=== PATIENT | female | born 1935 | race Hispanic/Latino ===

== ENCOUNTER 2017-09-12 16:16 | Observation (INO) | payer MEDICARE ==
[~2017-09-12] VITALS: Ht 147.3 cm; Wt 49.7 kg
[~2017-09-12 16:16] MED LIST: LORA-705 PO; METF10004 PO; SERT50TA12 PO; SIMV20TA6 PO
[2017-09-12 17:01] LABS: BASOPHILS % (AUTO) 0.7 % (0.0-5.0); HEMATOCRIT 33.1 % (36-48); LYMPHOCYTES % (AUTO) 18.3 % (21.0-51.0); MEAN CORPUSCULAR HEMOGLOBIN 27.7 pg (27.0-33.0); MEAN CORPUSCULAR VOLUME 81.6 fL (79-99); MONOCYTES % (AUTO) 6.7 % (3.0-13.0); NEUTROPHILS % (AUTO) 72.3 % (40.0-77.0); PLATELET COUNT (AUTO) 320 K/uL (130-400); RED BLOOD CELL COUNT(AUTO) 4.06 MIL/uL (4.00-5.50); RED CELL DISTRIBUTION WIDTH 15.7 % (11.0-15.5); WHITE BLOOD COUNT (AUTO) 11.2 K/uL (4.8-10.8)
[2017-09-12] MEDS ORDERED: ONDANSETRON HCL 4 MG/2 ML VIAL ONE (17:07)
[2017-09-12] MEDS ORDERED: ASPIRIN 325 MG TABLET ONE (17:07)
[2017-09-12] MEDS ORDERED: MORPHINE SULFATE 4 MG/1ML SYG ONE (17:08)
[2017-09-12 17:11] LABS: POTASSIUM 3.9 mmol/L (3.5-5.1)
[2017-09-12 17:13] LABS: INR 0.93 (0.85-1.15); PARTIAL THROMBOPLASTIN TIME 26.7 SEC (26.3-35.5); PROTHROMBIN TIME 9.8 SEC (9.6-11.6)
[2017-09-12 17:22] LABS: ALBUMIN 3.5 g/dL (3.5-5.0); BILIRUBIN,TOTAL 0.3 mg/dL (0.2-1.0); TOTAL PROTEIN, SERUM 8.1 g/dL (6.0-8.3)
[2017-09-12 17:28] LABS: B-TYPE NATRIURETIC PEPTIDE 59 pg/mL (0-100)
[2017-09-12] MEDS ORDERED: NITROGLYCERIN 0.4 MG SL TAB SL ONE (19:08)
[2017-09-12] MEDS ORDERED: HYDRALAZINE HCL 20 MG/ML VIAL ONE (19:09)
[2017-09-12] MEDS ORDERED: NITROGLYCERIN 1GM/1 INCH PACKET TD ONE (19:15)
[2017-09-12] MEDS ORDERED: IOPAMIDOL-370 100 ML VIAL IV ONE (19:45)
[2017-09-12] MEDS ORDERED: METOPROLOL TARTRATE 25 MG TAB ONE (19:57)
[2017-09-12] MEDS ORDERED: FAMOTIDINE 20MG TAB 20 MG TAB ONE (19:57)
[2017-09-12 22:04] VITALS: BP 158/64
[2017-09-12 23:31] VITALS: BP 134/67
[2017-09-12 23:49] LABS: CREATINE KINASE MB 0.5 ng/mL (0.5-3.6); CREATINE KINASE, TOTAL 31 U/L (21-232); MYOGLOBIN 59 ng/mL (10-92); TROPONIN I < 0.04 ng/mL (0.00-0.06)
[2017-09-13] MEDS ORDERED: MORPHINE SULFATE 2 MG/ML 1ML SYG IVP PRN (00:15)
[2017-09-13] MEDS ORDERED: TRAMADOL HCL 50 MG TABLET PO PRN (00:15)
[2017-09-13 03:57] VITALS: BP 139/66
[2017-09-13 05:57] LABS: CREATINE KINASE MB < 0.5 ng/mL (0.5-3.6); CREATINE KINASE, TOTAL 25 U/L (21-232); MYOGLOBIN 39 ng/mL (10-92); TROPONIN I < 0.04 ng/mL (0.00-0.06)
[2017-09-13] MEDS ORDERED: NITROGLYCERIN 1GM/1 INCH PACKET TD SCH (06:00)
[2017-09-13 07:25] VITALS: BP 131/69
[2017-09-13] MEDS ORDERED: FAMOTIDINE 20MG TAB 20 MG TAB PO SCH (09:00)
[2017-09-13] MEDS ORDERED: ASPIRIN 81 MG EC TAB PO SCH (09:00)
[2017-09-13] MEDS ORDERED: METOPROLOL TARTRATE 25 MG TAB PO SCH (09:00)
[2017-09-13 11:50] VITALS: BP 142/66
== END 2017-09-13 15:05 | disposition home or self-care (01) ==
LOC: EDH 16:16 → EDHIP 18:46 → 2DH 21:36
PROVIDERS: ADMIT Internal Medicine; ATTEND Internal Medicine
DX: R07.89 Other chest pain (principal); E11.9 Type 2 diabetes mellitus without complications; I10 Essential (primary) hypertension; E78.5 Hyperlipidemia, unspecified; Z82.49 Family history of ischemic heart disease and other diseases of the circulatory system; Z87.891 Personal history of nicotine dependence; M25.561 Pain in right knee; I25.10 Atherosclerotic heart disease of native coronary artery without angina pectoris
CPT/HCPCS: 36415 ×2; 71045; 71275; 73560; 80053; 82550 ×3; 82553 ×2; 82948; 83874 ×3; 83880; 84484 ×3; 85025; 85378; 85610; 85651; 85730; 86431; 93005; 93971; 99291; G0378 ×20; J0360; J2270; J2405; Q9967

== ENCOUNTER → 2020-12-22 | Outpatient (CLI) | payer MEDICARE ==
[~2020-12-22] MED LIST changes: +LORA-699 PO; -LORA-705 PO; +METF-446 PO; -METF10004 PO; +SERT-439 PO; -SERT50TA12 PO; +SIMV-43 PO; -SIMV20TA6 PO
== END | disposition home or self-care (01) ==
LOC: SHCH 15:40
PROVIDERS: ATTEND Internal Medicine Cardiovascular Disease
DX: I08.8 Other rheumatic multiple valve diseases (principal); R55 Syncope and collapse; I10 Essential (primary) hypertension; E78.5 Hyperlipidemia, unspecified; E11.9 Type 2 diabetes mellitus without complications
CPT/HCPCS: 93306; 93356